=== PATIENT | male | born 1955 | race Caucasian/White ===

== ENCOUNTER → 2016-10-10 | Outpatient (CLI) | payer MEDICARE ==
[~2016-10-10] MED LIST: ACTOS DPS30 MG PO; ANTIVERT-DPS25 MG PO; ASA325 MG PO; COUMADIN7.5 MG PO; GLUCOTROL5 MG PO; HUMULIN N100 UNIT/1 SQ; HUMULIN R100 UNIT/1 SQ; IMDUR DPS30 MG PO; ISOPTIN DPS120 MG PO; LASIX DPS40 MG PO; METOPROLOL TART25 MG PO; NOVOLIN R,100 UNITS/ SQ; PRAVACHOL40 MG PO; ZESTRIL10 MG PO
== END | disposition home or self-care (01) ==
LOC: RESC 10-02 10:35 → PTH.S 08:00
DX: R06.02 Shortness of breath (principal); R94.2 Abnormal results of pulmonary function studies